=== PATIENT | female | born 1935 | race Caucasian/White ===

== ENCOUNTER 2017-12-22 09:11 | Emergency (ER) | payer OTHER ==
[~2017-12-22] VITALS: Ht 147.3 cm; Wt 40.8 kg
[~2017-12-22 09:11] MED LIST: CALCIUM-MAGNESIUM PO; L20 PO; PRI20 PO; VITAMIN E PO; VITC PO
[2017-12-22 09:17] VITALS: Ht 147.3 cm; Wt 40.8 kg
[2017-12-22 12:16] VITALS: BP 136/68
== END 2017-12-22 12:23 | disposition home or self-care (01) ==
LOC: ED 09:11
DX: M25.462 Effusion, left knee (principal); Z88.6 Allergy status to analgesic agent
CPT/HCPCS: Q0092